=== PATIENT | male | born 1940 | race Caucasian/White ===

== ENCOUNTER 2020-08-25 00:10 | Inpatient (IN) | payer OTHER, MEDICAID ==
[~2020-08-25] VITALS: Ht 160 cm; Wt 64.9 kg
[2020-08-25 00:37] VITALS: BP 134/72
[2020-08-25 01:06] LABS: BASOPHILS % (AUTO) 0.3 % (0.0-2.0); EOSINOPHILS % (AUTO) 0.2 % (0.0-4.0); HEMOGLOBIN 11.3 g/dL (12.0-18.0); LYMPHOCYTES # (AUTO) 1.2 K/uL (2.0-11.5); LYMPHOCYTES % (AUTO) 15.3 % (20.5-51.1); MEAN CORPUSCULAR HEMOGLOBIN 33 pg (27-31); MEAN CORPUSCULAR HGB CONC 33 g/dL (33-37); MEAN CORPUSCULAR VOLUME 98.5 fL (80-94); MONOCYTES # (AUTO) 0.7 K/uL (0.8-1.0); MONOCYTES % (AUTO) 8.6 % (1.7-9.3); NEUTROPHILS # (AUTO) 5.9 K/uL (1.8-7.7); NEUTROPHILS % (AUTO) 75.6 % (42.2-75.2); PLATELET COUNT (AUTO) 142 K/uL (140-450); RED BLOOD CELL COUNT(AUTO) 3.45 MIL/uL (4.20-6.10); RED CELL DISTRIBUTION WIDTH 14.1 % (11.6-13.7); WHITE BLOOD COUNT (AUTO) 7.7 K/uL (4.8-10.8)
[2020-08-25 01:12] LABS: APPEARANCE,URINE CLEAR (CLEAR); BILIRUBIN,URINE 1+ (NEGATIVE); BLOOD, URINE NEGATIVE (NEGATIVE); COLOR,URINE YELLOW (YELLOW); LEUKOCYTE ESTERASE ,URINE NEGATIVE (NEGATIVE); NITRITE, URINE NEGATIVE (NEGATIVE); PH,URINE 5.5 (5.0-9.0); UGLUCOSE NEGATIVE (NEGATIVE)
[2020-08-25 01:25] LABS: ALBUMIN 4.5 g/dL (3.4-5.0); ANION GAP 17.9 (8-16); ASPARTATE AMINOTRANSFERASE 21 U/L (15-37); CARBON DIOXIDE 20.8 mmol/L (21-32); CHLORIDE 100 mmol/L (98-107); CREATININE 2.2 mg/dL (0.6-1.3); GLUCOSE 268 mg/dL (74-106); LIPASE 278 U/L (73-393); POTASSIUM 5.7 mmol/L (3.5-5.1); SODIUM SERUM 133 mmol/L (136-145); TOTAL BILIRUBIN 0.6 mg/dL (0.0-1.0); UREA NITROGEN, BLOOD 59 mg/dL (7-18)
--- NOTE | 2020-08-25 01:35 | NUR ---
PT BIB SELF FOR C/O 08/20 EPIGASTRIC PAIN X 4 DAYS. POSITIVE N/V. DENIES DIARRHEA, FEVER, CHILLS. REPORTS UNABLE TO EAT THE LAST 4 DAYS. TOLERATING LIQUIDS WELL. PAIN NOTED UPON PALPATION TO EPIGASTRIC AREA. DENIES CP OR SOB. MED HX: DM, LEFT EYE BLINDESS ALLERGIES: NKA
--- NOTE | 2020-08-25 01:39 | NUR ---
ERMD AT BEDSIDE.
[2020-08-25] MEDS ORDERED: MORPHINE SULFATE 4 MG/ML SYR IVP ONE (01:55)
--- NOTE | 2020-08-25 02:18 | NUR ---
PT TAKEN TO RAD VIA W/C
[2020-08-25] MEDS ORDERED: NACL 0.9% 1,000 ML IV SCH ×2 (03:55→10:00)
[2020-08-25] MEDS ORDERED: FUROSEMIDE 40 MG/4 ML VIAL IVP SCH (03:55)
[2020-08-25] MEDS ORDERED: PANTOPRAZOLE 40 MG INJ VIAL IVP SCH (03:55)
[2020-08-25] MEDS ORDERED: metroNIDAZOLE 500 MG/NS PREMIX 100 ML IV SCH (03:55)
[2020-08-25] MEDS ORDERED: cefTRIAXone 1,000 MG VIAL ONE (04:05)
[2020-08-25] MEDS ORDERED: DEXT 5% / NACL 0.9% 1,000 ML IV SCH (05:05)
[2020-08-25] MEDS ORDERED: BENA40TA PO (05:05)
[2020-08-25] MEDS ORDERED: SIMV10TA92 PO (05:05)
[2020-08-25] MEDS ORDERED: METF500T PO (05:05)
[2020-08-25] MEDS ORDERED: INSU100I7 SQ (05:05)
[2020-08-25] MEDS ORDERED: INSU100S54 SC (05:05)
--- NOTE | 2020-08-25 06:07 | NUR ---
PT AMBULATED TO RESTROOM WITH STEADY GAIT.
--- NOTE | 2020-08-25 07:15 | NUR ---
REPORT RECEIVED FROM BERONICA KIMBALL, TRANSFER OF CARE AT THIS TIME
--- NOTE | 2020-08-25 07:15 | NUR ---
REPORT GIVEN TO JIGAR CHRISTIAN FOR CONTINUITY OF CARE.
[2020-08-25] MEDS ORDERED: ZOLPIDEM 5 MG TAB PO PRN (08:20)
[2020-08-25] MEDS ORDERED: POTASSIUM CHLORIDE 10 MEQ TABER PO PRN (08:20)
[2020-08-25] MEDS ORDERED: DOCUSATE SODIUM 100 MG GELCAP PO PRN (08:20)
[2020-08-25] MEDS ORDERED: DEXTROSE 50% 50 ML SYR IVP PRN (08:20)
[2020-08-25] MEDS ORDERED: ACETAMINOPHEN 325 MG TAB PO PRN (08:20)
[2020-08-25] MEDS ORDERED: ONDANSETRON 4 MG/2 ML VIAL IM/IVP PRN (08:20)
[2020-08-25] MEDS ORDERED: MORPHINE SULFATE 2 MG/ML SYR IVP PRN (08:20)
[2020-08-25] MEDS ORDERED: guaiFENesin DM 200/20 MG-10 ML 10 ML UDC PO PRN (08:20)
[2020-08-25] MEDS: PANTOPRAZOLE 40 MG INJ VIAL IVP SCH (09:00)
--- NOTE | 2020-08-25 09:30 | NUR ---
PT ALERT AND AWAKE, BREATHING EVEN AND UNLABORED. NO DISTRESS NOTED. ALL NEEDS MET AT THIS TIME. WILL CONTINUE TO MONITOR.
[2020-08-25] MEDS ORDERED: INSULIN REGULAR, HUMAN 100 UNIT/ML VIAL IVP SCH (10:05)
[2020-08-25] MEDS ORDERED: DEXTROSE 50% 50 ML SYR IVP SCH (10:05)
[2020-08-25] MEDS: BLOOD GLUCOSE MONITORING 1 DEV DEV FS SCH ×3 (11:30→21:00)
--- NOTE | 2020-08-25 11:45 | NUR ---
RECEIVED REPORT FROM ER NURSE KARENA PT IS ON ROOM AIR, AMBULATORY WITH ASSIST, SKIN INTACT, CC EPIGASTRIC PAIN AND LOSS OF APPETITE X 3 DAYS, LEFT EYE BLINDNESS AND RIGHT EYE HARD OF SEEING, ON NPO, IV INTACT ON LEFT WRIST G22 WITH D5NS AT 105 MLS/HR.BLOOD SUGAR TAKEN AT 10:30 274 MG/DL.
--- NOTE | 2020-08-25 11:45 | NUR ---
Patient will be admitted to care of Dr Odom. Admited to Tele. Will go to room 124B. Belongings list completed. Report to Angelique KIMBALL.
[2020-08-25 12:05] VITALS: BP 137/70
--- NOTE | 2020-08-25 12:05 | NUR ---
PT BROUGHT TO THE UNIT VIA GURNEY, AMBULATED TO HIS BED, ASSISTED PATIENT AND CHANGED PT GOWN, SOCKS, FALL RISK BAND IN PLACE, CHECK VITAL SIGNS BP 137/70 MT 85 RR 20 TEMP 97.6 O2 99%,ORIENTED TO ROOM, SAFETY MEASURES IN PLACE AND CALL LIGHT WITHIN REACH. WILL CONTINUE TO MONITOR.
--- NOTE | 2020-08-25 12:08 | NUR ---
PT TAKEN TO FLOOR AT THIS TIME
[2020-08-25 12:12] LABS: APPEARANCE,URINE CLEAR (CLEAR); BILIRUBIN,URINE NEGATIVE (NEGATIVE); BLOOD, URINE NEGATIVE (NEGATIVE); COLOR,URINE YELLOW (YELLOW); LEUKOCYTE ESTERASE ,URINE NEGATIVE (NEGATIVE); NITRITE, URINE NEGATIVE (NEGATIVE); PH,URINE 5.5 (5.0-9.0); UGLUCOSE 2+ (NEGATIVE)
--- NOTE | 2020-08-25 12:25 | NUR ---
MRSA NARES SWAB COMPLETE AND SENT TO LAB.
--- NOTE | 2020-08-25 12:45 | NUR ---
BLOOD SUGAR 246 MF/DL INSULIN COVERAGE 4 UNITS GIVEN AND ADMINISTERED SCHEDULED MEDICATION METRONIDAZOLE 500 MG INFUSING WELL.PT IS RESTING ACCOMPANIED BY HIS SON.WILL CONTINUE TO MONITOR.
[2020-08-25 12:46] LABS: RBC,URINE 0-5 /HPF (0-5); WBC,URINE 0-5 /HPF (0-5)
[2020-08-25] MEDS: metroNIDAZOLE 500 MG/NS PREMIX 100 ML IV SCH ×2 (13:04→20:29)
[2020-08-25] MEDS: INSULIN LISPRO SLIDING SCALE 100 UNITS/ML VIAL SUBQ PRN ×2 (13:05→16:28)
[2020-08-25 13:42] LABS: PROTHROMBIN TIME 10.4 secs (10.8-13.4)
[2020-08-25 13:53] LABS: CHOL/HDL RATIO 3.3 (1-4.5); FREE T4 (FREE THYROXINE) 0.99 ng/dL (0.76-1.46); MAGNESIUM 1.6 mg/dL (1.8-2.4); PHOSPHORUS 2.8 mg/dL (2.5-4.9); THYROID STIMULATING HORMONE 2.29 uIU/mL (0.34-3.74)
[2020-08-25 16:00] VITALS: BP 111/59
--- NOTE | 2020-08-25 16:21 | NUR ---
DC PLANNING: CM SPOKE WITH PATIENT AT BEDSIDE. PATIENTS GRANDDAUGHTER LILLIANA ACTED FREIGHT CLAIM INVESTIGATOR PATIENT IS HEBREW SPEAKING. PATIENT LIVES WITH HIS SPOUSE HAIDER. THEY HAVE A RESIDENCE IN [place] AND ALSO SOMETIMES LIVE WITH THE PATIENTS SON SHAUN SARGENT IN [place] ([phone]). RESIDENCES ARE SINGLE STORY, ONE IS A HOUSE AND ONE IS AN APARTMENT. PATIENT IS INDEPENDENT IN ALL ACTIVITIES, NO PRIOR HOME HEALTH, DME OR SNF STAY. PATIENT HAS A PCP IN [place], LAST VISIT WAS IN JUL[place], PATIENT SEES HIM REGULARLY. DC PLAN IS FOR PATIENT TO STAY WITH ANOTHER SON IN [place], LILLIANA WILL CALL CM WITH THAT ADDRESS.
--- NOTE | 2020-08-25 16:29 | NUR ---
BLOOD SUGAR 176 MG/DL INSULIN COVERAGE GIVEN 2 UNITS PT TOLERATED WELL NO DISTRESS NOTED. WILL CONTINUE TO MONITOR,
[2020-08-25] MEDS: MAGNESIUM OXIDE 400 MG TAB PO SCH (18:27)
--- NOTE | 2020-08-25 18:28 | NUR ---
SCHEDULED MEDICATIONS WAS ADMINISTERED FOR MAGNESIUM LEVEL OF 1.7L. PT IS NOT UNDER DISTRESS. CALL LIGHT IS WITHIN REACH. WILL CONTINUE TO MONITOR. SAFETY PRECAUTIONS ARE IN PLACE.
[2020-08-25] MEDS: DEXT 5% / NACL 0.9% 1,000 ML IV SCH (18:50)
--- NOTE | 2020-08-25 18:56 | NUR ---
ADMINISTERED IV FLUIDS D5NS 0.9% AT 85 MLS/HR INFUSING WELL PT IS RESTING.
--- NOTE | 2020-08-25 19:30 | NUR ---
RECEIVED REPORT FROM JAYE RN DAYSHIFT NURSE AT [facility] FOR CONTINUITY OF CARE, PT IN STABLE CONDITION.
--- NOTE | 2020-08-25 19:35 | NUR ---
ENDORSED TO NIGHT NURSE FOR CONTINUITY OF CARE.
[2020-08-25 20:00] VITALS: BP 127/68
--- NOTE | 2020-08-25 20:00 | NUR ---
PT LYING IN BED AOX4 MOSTLY GREENLANDIC SPEAKING HE IS ON ROOM AIR, SKIN INTACT AND HE HAS A 22G L WRIST RUNNING D5N/S AT 85 MLS/HR. V/S FOLLOWS: T 98.7 P 84 R 20 B/P 127/68 02 97%. PT FINGERSTICK IS 148, NO HUMALOG COVERAGE NEEDED. ALL FALLS PRECAUTIONS IN PLACE.
--- NOTE | 2020-08-25 21:00 | NUR ---
FLAGYL HUNG AND RUNNING AT 100MLS/HR ORDERED. PT EDUCATED REGARDING MEDICATION AND ITS PURPOSES. PT VERBALIZED UNDERSTANDING.
--- NOTE | 2020-08-25 22:00 | NUR ---
ROEL HUNG AND RUNNING ORDERED. PT ASLEEP. PT AWOKEN AND EXPLAINED MEDICATION PURPOSES . PT VERBALIZED UNDERSTANDING. ALL FALLS PRECAUTIONS IN PLACE.
--- NOTE | 2020-08-25 22:30 | NUR ---
SPOKE WITH MD BLAIR EGG TRAYER REGARDING INCREASED POTASSIUM TO 5.7 NEW ORDER TO INCREASE RATE TO 100MLS/HR
[2020-08-26] VITALS: BP 129/72
[2020-08-26] MEDS: HYDROcodone/APAP 7.5/325 MG 1 TAB PO PRN ×3 (00:30→18:38)
--- NOTE | 2020-08-26 00:30 | NUR ---
PT C/ OF LOWER BACK PAIN , HE WAS GIVEN ORDERED PO/PRN NORCO WILL MONITOR FOR PAIN RELIEF. V/S FOLLOWS: T 98.4 P 108 R 20 B/P 129/72 02 98% ON ROOM AIR. ALL FALLS PRECAUTIONS IN PLACE.
[2020-08-26 04:00] VITALS: BP 127/68
[2020-08-26] MEDS: metroNIDAZOLE 500 MG/NS PREMIX 100 ML IV SCH ×3 (05:09→20:51)
[2020-08-26 05:30] LABS: BASOPHILS % (AUTO) 0.6 % (0.0-2.0); EOSINOPHILS # (AUTO) 0.2 K/uL (0-0.4); EOSINOPHILS % (AUTO) 4.1 % (0.0-4.0); HEMATOCRIT 25.6 % (36-52); HEMOGLOBIN 8.6 g/dL (12.0-18.0); LYMPHOCYTES # (AUTO) 0.7 K/uL (2.0-11.5); LYMPHOCYTES % (AUTO) 15.5 % (20.5-51.1); MEAN CORPUSCULAR HEMOGLOBIN 33 pg (27-31); MEAN CORPUSCULAR HGB CONC 34 g/dL (33-37); MEAN CORPUSCULAR VOLUME 97.6 fL (80-94); MONOCYTES # (AUTO) 0.5 K/uL (0.8-1.0); MONOCYTES % (AUTO) 10.9 % (1.7-9.3); NEUTROPHILS # (AUTO) 3.1 K/uL (1.8-7.7); NEUTROPHILS % (AUTO) 68.9 % (42.2-75.2); PLATELET COUNT (AUTO) 123 K/uL (140-450); RED BLOOD CELL COUNT(AUTO) 2.62 MIL/uL (4.20-6.10); RED CELL DISTRIBUTION WIDTH 14.2 % (11.6-13.7); WHITE BLOOD COUNT (AUTO) 4.5 K/uL (4.8-10.8)
[2020-08-26 06:08] LABS: CHLORIDE 108 mmol/L (98-107); CREATININE 1.5 mg/dL (0.6-1.3); GLUCOSE 269 mg/dL (74-106); POTASSIUM 5.2 mmol/L (3.5-5.1); SODIUM SERUM 137 mmol/L (136-145); UREA NITROGEN, BLOOD 35 mg/dL (7-18)
[2020-08-26 06:21] LABS: ANION GAP 11.3 (8-16); CARBON DIOXIDE 22.9 mmol/L (21-32)
[2020-08-26] MEDS: INSULIN LISPRO SLIDING SCALE 100 UNITS/ML VIAL SUBQ PRN ×4 (06:41→20:47)
[2020-08-26] MEDS: DEXT 5% / NACL 0.9% 1,000 ML IV SCH (06:50)
--- NOTE | 2020-08-26 07:30 | NUR ---
RECEIVED BEDSIDE REPORT FROM GTA NURSE FOR CONTINUITY OF CARE. PT IS AOX4, ENGLISH SPEAKING, ABLE TO MAKE NEEDS KNOWN. RESPIRATIONS EVEN AND UNLABORED. ON ROOM AIR AND NO RESPIRATORY DISTRESS NOTED. SKIN IS WARM AND DRY. NO IV SITE DUE TO INFILTRATION, WILL REINSERT NEW IV. DENIES PAIN AT THE MOMENT. PLAN OF CARE DISCUSSED. SAFETY PRECAUTIONS IN PLACE. BED IN LOW POSITION AND CALL LIGHT WITHIN REACH. WILL CONTINUE TO MONITOR.
[2020-08-26] MEDS: BLOOD GLUCOSE MONITORING 1 DEV DEV FS SCH ×4 (07:45→20:50)
[2020-08-26 08:00] VITALS: BP 111/62
--- NOTE | 2020-08-26 08:05 | NUR ---
PATIENT HAS BEEN SCREENED AND CATEGORIZED MODERATE NUTRITION RISK. PATIENT WILL BE SEEN WITHIN 3-5 DAYS OF ADMISSION. 08/27/20 08/29/20 RECEIVED FNS REFERRAL NOT APPROPRIATE FOR VOMITING OVER 3 DAYS AND UNINTENTIONAL WEIGHT LOSS, PER MD H&P NOTE AND MD CONSULT PT DENIED VOMITING AND WEIGHT LOSS. BERONICA GAYLE RD
[2020-08-26 08:42] LABS: CREATININE,URINE RANDOM 18 mg/dL (30-125); URINE SODIUM, RANDOM 106 mmol/l (40-220)
[2020-08-26] MEDS: DEXT 5% /NACL 0.9% 1,000 ML IV SCH ×2 (08:51→18:09)
--- NOTE | 2020-08-26 09:15 | NUR ---
INSERTED NEW IV ON RFA 24 G. INTACT AND PATENT.
[2020-08-26] MEDS: PANTOPRAZOLE 40 MG INJ VIAL IVP SCH (09:27)
[2020-08-26] MEDS: MAGNESIUM OXIDE 400 MG TAB PO SCH (09:27)
--- NOTE | 2020-08-26 09:30 | NUR ---
ALL SCHEDULED MEDS GIVEN. PT IS STABLE. NO DISTRESS NOTED. WILL CONTINUE TO MONITOR.
--- NOTE | 2020-08-26 11:29 | NUR ---
BLOOD GLUCOSE CHECK IS 160. INSULIN COVERAGE NEEDED. ADMINISTERED 2 UNITS OF INSULIN SQ PER MD ORDERED.
--- NOTE | 2020-08-26 11:59 | NUR ---
PATIENT'S FAMILY AT BEDSIDE. INFORMED NEW UPDATES OF PLAN OF CARE WITH PATIENT'S FAMILY.
[2020-08-26 12:00] VITALS: BP 136/76
[2020-08-26] MEDS ORDERED: FUROSEMIDE 20 MG/2 ML VIAL IVP SCH (12:30)
--- NOTE | 2020-08-26 12:42 | NUR ---
PATIENT COMPLAINED OF LOWER BACK PAIN 5/10. ADMINISTERED PRN PAIN MEDICATION PER MD ORDERED.
[2020-08-26 13:04] LABS: T4 (THYROXINE) 7.6 ug/dL (4.5 - 12.0)
--- NOTE | 2020-08-26 15:00 | NUR ---
PATIENT IS ASLEEP. NOTED CHEST RISE AND FALL. NO DISTRESS NOTED. WILL CONTINUE TO MONITOR.
[2020-08-26 16:00] VITALS: BP 124/72
--- NOTE | 2020-08-26 17:50 | NUR ---
BLOOD GLUCOSE CHECK AT 257. INSULIN COVERAGE NEEDED. ADMINISTERED 6 UNITS OF INSULIN SQ PER MD ORDERED.
--- NOTE | 2020-08-26 18:38 | NUR ---
PATIENT COMPLAINED OF LOWER BACK PAIN 5/10. ADMINISTERED PRN PAIN MEDICATION PER MD ORDERED.
--- NOTE | 2020-08-26 19:30 | NUR ---
RECEIVED REPORT FROM RN DAYSHIFT NURSE AT BEDSIDE FOR CONTINUITY OF CARE, PT IN STABLE CONDITION. PT IN BED AOX4 MOSTLY CROATIAN SPEAKING. HE HAS A 24 GUAGE ON RIGHT F/A INTACT AND RUNNING D5 N/S AT 100MLS/HR. PT HAS NO C/O VOICED AT THIST MARTINEZ AND ALL FALLS PRECAUTIONS IN PLACE.
--- NOTE | 2020-08-26 19:30 | NUR ---
ENDORSED TO FOOT AND ANKLE SURGEON NURSE FOR CONTINUITY OF CARE. PT IS STABLE.
[2020-08-26 20:00] VITALS: BP 99/59
--- NOTE | 2020-08-26 20:00 | NUR ---
PT V/S FOLLOWS: T 98.7 P 84 R 20 B/P 127/68 02 97% ON ROOM AIR. PT DENIES ANY PAIN . FLUIDS OF D5 N/S RUNNING ORDERED AT 100MLS/HR PT DENIES ANY PAIN AT THIS TIME. ALL FALLS PRECAUTIONS IN PLACE.
--- NOTE | 2020-08-26 21:00 | NUR ---
PT FINGERSTICK IS 177, HE WAS GIVEN 2 UNITS OF HUMALOG PER S/S MEG BOLTON AND RUNNING AT 100MLS/HR ORDERED. ALL REQUESTED NEEDS ATTENDED BY STAFF. PT HUMERA ANY PAIN OR DISCOMFORT AT THIS TIME.
--- NOTE | 2020-08-26 22:00 | NUR ---
ADELAIDAHISevero HUNG AND RUNNING ORDERED PT ABLE TO VERBALIZED UNDERSTANDING OF IV ABT'S. NEW BAG OF D5 FLUIDS HUNG AND RUNNING AT 10MLS/HR ORDERED. ALL FALLS PRECAUTIONS IN PLACE.
[2020-08-27] VITALS: BP 112/58
--- NOTE | 2020-08-27 00:10 | NUR ---
PT IN BED RESTING BUT AROUSABLE TO NAME AND LIGHT TOUCH. PT DENIES ANY PAIN AT THIS TIME. V/S FOLLOWS: T 97.7 P 76 R 20 B/P 99/59 02 96% ON ROOM AIR. ALL FALLS PRECAUTIONS IN PLACE.
--- NOTE | 2020-08-27 01:30 | NUR ---
PT'S GRANDDAUGHTER AT BEDSIDE. PT SPEAKING APPROPRIATELY. NO SIGN OF PAIN OR DISTRESS. ON RA. IV IS PATENT AND INTACT. PT IS STABLE. WILL CONTINUE TO MONITOR. Addendum: 08/27/20 at 1520 by Rachel White RN MEANT FOR 1330 PM NOT 0130 AM.
[2020-08-27 04:00] VITALS: BP 121/61
[2020-08-27] MEDS: DEXT 5% /NACL 0.9% 1,000 ML IV SCH (04:00)
[2020-08-27] MEDS: metroNIDAZOLE 500 MG/NS PREMIX 100 ML IV SCH ×3 (05:12→20:15)
[2020-08-27 05:21] LABS: ANION GAP 14.9 (8-16); CARBON DIOXIDE 24.2 mmol/L (21-32); CHLORIDE 106 mmol/L (98-107); CREATININE 1.4 mg/dL (0.6-1.3); GLUCOSE 219 mg/dL (74-106); POTASSIUM 5.1 mmol/L (3.5-5.1); SODIUM SERUM 140 mmol/L (136-145); UREA NITROGEN, BLOOD 22 mg/dL (7-18)
[2020-08-27 05:40] LABS: BASOPHILS % (AUTO) 0.5 % (0.0-2.0); EOSINOPHILS # (AUTO) 0.2 K/uL (0-0.4); EOSINOPHILS % (AUTO) 3.4 % (0.0-4.0); HEMATOCRIT 27.6 % (36-52); HEMOGLOBIN 9.3 g/dL (12.0-18.0); LYMPHOCYTES # (AUTO) 0.8 K/uL (2.0-11.5); LYMPHOCYTES % (AUTO) 15.7 % (20.5-51.1); MEAN CORPUSCULAR HEMOGLOBIN 33 pg (27-31); MEAN CORPUSCULAR HGB CONC 34 g/dL (33-37); MEAN CORPUSCULAR VOLUME 97.4 fL (80-94); MONOCYTES # (AUTO) 0.6 K/uL (0.8-1.0); MONOCYTES % (AUTO) 10.8 % (1.7-9.3); NEUTROPHILS # (AUTO) 3.7 K/uL (1.8-7.7); NEUTROPHILS % (AUTO) 69.6 % (42.2-75.2); PLATELET COUNT (AUTO) 139 K/uL (140-450); RED BLOOD CELL COUNT(AUTO) 2.84 MIL/uL (4.20-6.10); RED CELL DISTRIBUTION WIDTH 14.2 % (11.6-13.7); WHITE BLOOD COUNT (AUTO) 5.3 K/uL (4.8-10.8)
[2020-08-27] MEDS: INSULIN LISPRO SLIDING SCALE 100 UNITS/ML VIAL SUBQ PRN ×4 (06:36→20:17)
[2020-08-27] MEDS: BLOOD GLUCOSE MONITORING 1 DEV DEV FS SCH ×4 (07:13→20:15)
--- NOTE | 2020-08-27 07:30 | NUR ---
RECEIVED BEDSIDE REPORT FROM ORE MIXER NURSE FOR CONTINUITY OF CARE. PT IS AWAKE AND ALERT. A&OX4. ON RA WITH BREATHING UNLABORED. PT IS AMBULATORY INDEPENDENTLY. SKIN IS WARM, DRY, AND INTACT. IV IS IN THE RIGHT FOREARM 24 GAUGE INFUSING FLUIDS ORDERED. PT IS STABLE. PLAN OF CARE DISCUSSED.
[2020-08-27 08:00] VITALS: BP 118/62
--- NOTE | 2020-08-27 09:30 | NUR ---
PT IS LAYING SUPINE. NO RESPIRATORY DISTRESS NOTED ON RA. IV FLUIDS ARE INFUSING ORDERED. PT IS STABLE.
[2020-08-27] MEDS: MAGNESIUM OXIDE 400 MG TAB PO SCH (09:34)
[2020-08-27] MEDS: PANTOPRAZOLE 40 MG INJ VIAL IVP SCH ×2 (09:34→20:16)
--- NOTE | 2020-08-27 11:30 | NUR ---
PT IS AWAKE AND ALERT. DENIES ABD PAIN. DENIES N/V. PT HAS NOT HAD A BM TODAY. NO DISTRESS AT THIS TIME. PT IS STABLE.
[2020-08-27 12:00] VITALS: BP 133/70
[2020-08-27] MEDS ORDERED: PANTOPRAZOLE 40 MG INJ VIAL IVP SCH (12:40)
--- NOTE | 2020-08-27 12:44 | NUR ---
SPOKE WITH DR. SELLERS, HE GAVE VERBAL ORDER FOR FULL LIQUID DIET. HE ALSO ASKED WHEN THE LAST TIME THE PT HAD A BM. ASKED THE PT AND HE SAID 4 DAYS AGO. WILL NEED TO COLLECT STOOL FOR OCCULT BLOOD SAMPLE.
[2020-08-27] MEDS: DEXT 5% / NACL 0.45% 1,000 ML IV SCH (12:45)
[2020-08-27] MEDS: SUCRALFATE 1 GM TAB PO SCH ×3 (13:44→20:16)
--- NOTE | 2020-08-27 14:00 | NUR ---
PT RECEIVED FOOD TRAY. DIET WAS ADVANCED TO FULL LIQUID. PT TOLERATED FULL LIQUID WELL. NO COMPLAINT OF N/V. PT IS STABLE.
[2020-08-27 16:00] VITALS: BP 131/74
--- NOTE | 2020-08-27 16:00 | NUR ---
PT IS SITTING AT BEDSIDE, TALKING TO GRANDDAUGHTER. NO DISTRESS NOTED. PT'S BREATHING IS UNLABORED ON RA. PT WAS GIVEN WATER REQUESTED. NEEDS HAVE BEEN MET.
[2020-08-27] MEDS: HYDROcodone/APAP 7.5/325 MG 1 TAB PO PRN (18:31)
--- NOTE | 2020-08-27 18:31 | NUR ---
PT IS STATING HE HAS PAIN IN HIS LOWER ABDOMEN. PT WAS GIVEN NORCO FOR PAIN AT A SCALE OF 6/10. WILL CONTINUE TO MONITOR PAIN.
--- NOTE | 2020-08-27 19:35 | NUR ---
ENDORSED PT TO SUPERVISOR CONCRETE STONE FINISHING NURSE FOR CONTINUITY OF CARE. PT IS STABLE AT THIS TIME. PLAN OF CARE DISCUSSED.
--- NOTE | 2020-08-27 19:40 | NUR ---
RECIEVED BEDSIDE ENDORSMENT FROM DAY SHIFT RN, PT A&OX3, ABLE TO MAKE NEEDS KNOWN AND FOLLOWS SIMPLE COMMANDS, MAINLY AUSTRIAN SPEAKING BUT ALBE TO COMMUNICATE WITH IRISH, SR ON MONITOR, ON ROOM AIR, VSS, AFEBRILE, SKIN WARM DRY AND INTACT, PT ABLE TO USE BEDSIDE URINAL WITH ASSISTANCE, RFA 24 G PIV INFUSING D5 HALF NS @ 80MLS/HR, PT SHOWING NO SIGNS OF ACUTE DISTRESS, SAFETY MEASURES IN PLACE, WILL CONTINUE WITH CURRENT POC
[2020-08-27 20:00] VITALS: BP 133/66
--- NOTE | 2020-08-27 20:18 | NUR ---
ADMINISTERED 2100H MEDICAITONS PER MD ORDERS, BLOOD GLUCOSE 213, ADMINISTERED 4 UNITS HUMALOG PER PROTOCOL
--- NOTE | 2020-08-27 22:03 | NUR ---
ASSISTED PT WITH TURNING, ADMINISTERED ROCEPHIN VIA IVPB, NO SIGNS OF ACUTE DISTRESS
[2020-08-28] VITALS: BP 120/53
--- NOTE | 2020-08-28 00:08 | NUR ---
PT SEEMS TO BE ASLEEP AND SHOWING NO SIGNS OF ACUTE DISTRESS
[2020-08-28] MEDS: DEXT 5% / NACL 0.45% 1,000 ML IV SCH ×2 (01:15→04:58)
--- NOTE | 2020-08-28 02:39 | NUR ---
PT ASLEEP AND SHOWING NO SIGNS OF ACUTE DISTRESS
[2020-08-28 04:00] VITALS: BP 131/68
[2020-08-28] MEDS: metroNIDAZOLE 500 MG/NS PREMIX 100 ML IV SCH ×3 (04:13→21:23)
--- NOTE | 2020-08-28 04:39 | NUR ---
ADMINISTERED 0500H MEDICATION PER MD ORDERS
[2020-08-28 05:09] LABS: BASOPHILS % (AUTO) 0.7 % (0.0-2.0); EOSINOPHILS # (AUTO) 0.2 K/uL (0-0.4); EOSINOPHILS % (AUTO) 5.2 % (0.0-4.0); HEMATOCRIT 25.2 % (36-52); HEMOGLOBIN 8.5 g/dL (12.0-18.0); LYMPHOCYTES # (AUTO) 1.1 K/uL (2.0-11.5); MEAN CORPUSCULAR HEMOGLOBIN 33 pg (27-31); MEAN CORPUSCULAR HGB CONC 34 g/dL (33-37); MEAN CORPUSCULAR VOLUME 98.8 fL (80-94); MONOCYTES # (AUTO) 0.7 K/uL (0.8-1.0); MONOCYTES % (AUTO) 14.3 % (1.7-9.3); NEUTROPHILS # (AUTO) 2.6 K/uL (1.8-7.7); NEUTROPHILS % (AUTO) 55.8 % (42.2-75.2); PLATELET COUNT (AUTO) 147 K/uL (140-450); RED BLOOD CELL COUNT(AUTO) 2.56 MIL/uL (4.20-6.10); RED CELL DISTRIBUTION WIDTH 14.3 % (11.6-13.7); WHITE BLOOD COUNT (AUTO) 4.7 K/uL (4.8-10.8)
[2020-08-28 05:12] LABS: ANION GAP 10.2 (8-16); CARBON DIOXIDE 25.2 mmol/L (21-32); CHLORIDE 105 mmol/L (98-107); CREATININE 1.3 mg/dL (0.6-1.3); GLUCOSE 189 mg/dL (74-106); POTASSIUM 4.4 mmol/L (3.5-5.1); SODIUM SERUM 136 mmol/L (136-145); UREA NITROGEN, BLOOD 14 mg/dL (7-18)
[2020-08-28 05:20] LABS: MAGNESIUM 1.5 mg/dL (1.8-2.4); PHOSPHORUS 2.8 mg/dL (2.5-4.9)
[2020-08-28] MEDS: HYDROcodone/APAP 7.5/325 MG 1 TAB PO PRN (06:11)
[2020-08-28] MEDS: BLOOD GLUCOSE MONITORING 1 DEV DEV FS SCH ×4 (06:22→21:26)
[2020-08-28] MEDS: INSULIN LISPRO SLIDING SCALE 100 UNITS/ML VIAL SUBQ PRN ×4 (06:23→21:29)
--- NOTE | 2020-08-28 06:23 | NUR ---
BLOOD GLUCOSE 182, ADMINISTERED 2 UNITS HUMALOG PER PROTOCOL
--- NOTE | 2020-08-28 07:19 | NUR ---
ENDORSED TO DAY SHIFT RN FOR CONTINUITY OF CARE
--- NOTE | 2020-08-28 07:24 | NUR ---
RECEIVED BEDSIDE REPORT FROM NIGHTSHIFT NURSE. PT RESTING IN BED. ABLE TO MAKE NEEDS KNOWN. RESPIRATIONS EVEN AND UNLABORED WITH NO SOB OR RESPIRATORY DISTRESS. SKIN WARM AND DRY TO TOUCH. SAFETY MEASURES IN PLACE. WILL CONTINUE TO MONITOR
[2020-08-28 08:00] VITALS: BP 121/78
[2020-08-28] MEDS ORDERED: LACTULOSE 20 GM/30 ML UDC PO SCH (09:00)
[2020-08-28] MEDS: PANTOPRAZOLE 40 MG INJ VIAL IVP SCH ×2 (09:05→21:22)
[2020-08-28] MEDS: MAGNESIUM OXIDE 400 MG TAB PO SCH (09:05)
[2020-08-28] MEDS: SUCRALFATE 1 GM TAB PO SCH ×4 (09:05→21:00)
--- NOTE | 2020-08-28 09:11 | NUR ---
MEDICATIONS GIVEN PER MD ORDER. MEDICATION EDUCATION PROVIDED. PT ABLE TO MAKE NEEDS KNOWN. ALL SAFETY MEASURES IN PLACE. CALL LIGHT WITHIN REACH.
[2020-08-28] MEDS: LACTULOSE 20 GM/30 ML UDC PO SCH ×3 (10:15→17:05)
--- NOTE | 2020-08-28 10:30 | NUR ---
PT NEEDS CT OF ABD/PELVIS, PT NEEDS HIGHER GAUGE IV CATHETER, ATTEMPTED X2 FOR IV. PT STATED "I DO NOT WANT TO BE POKED ANYMORE." US, CHARGE, AND MD AWARE. SAFETY MEASURES IN PLACE. WILL CONTINUE TO MONITOR
[2020-08-28] MEDS: MAG SULF 2000 MG/WATER PREMIX 100 ML IV SCH ×2 (11:24→14:35)
--- NOTE | 2020-08-28 11:30 | NUR ---
PT BLOOD SUGAR IS 246. PRN INSULIN TO BE ADMINISTERED PRESCRIBED PER MD ORDER. PT TOLERATED WELL. SAFETY MEASURES IN PLACE. WILL CONTINUE TO MONITOR
[2020-08-28 12:00] VITALS: BP 155/68
--- NOTE | 2020-08-28 12:15 | NUR ---
PT VISITING AT BEDSIDE. NO DISTRESS WITH PATIENT. SAFETY MEASURES IN PLACE. WILL CONTINUE TO MONITOR
--- NOTE | 2020-08-28 13:00 | NUR ---
ADMINISTERED SCHED MED PRESCRIBED PER MD ORDER. PT TOLERATED WELL. MEDICATION EDUCATION PERFORMED. PT VERBALIZED UNDERSTANDING. SAFETY MEASURES IN PLACE. WILL CONTINUE TO MONITOR
[2020-08-28] MEDS: SENNA 8.6 MG TAB PO SCH ×2 (13:33→17:07)
--- NOTE | 2020-08-28 14:00 | NUR ---
PATIENT TO HAVE EGD/COLONOSCOPY TOMORROW, DR. DEWITT EXPLAINING PROCEDURE TO PATIENT WITH [facility] [id number]. SAFETY MEASURES IN PLACE. WILL CONTINUE TO MONITOR
--- NOTE | 2020-08-28 15:15 | NUR ---
PT RESTING IN BED. ABLE TO MAKE NEEDS KNOWN. RESPIRATIONS EVEN AND UNLABORED WITH NO SOB OR RESPIRATORY DISTRESS. SKIN WARM AND DRY TO TOUCH. SAFETY MEASURES IN PLACE. WILL CONTINUE TO MONITOR
[2020-08-28 16:00] VITALS: BP 155/72
--- NOTE | 2020-08-28 16:30 | NUR ---
BG IS 189. INSULIN COVERAGE NEEDED PER SLIDING SCALE PER MD ORDERS. PT EDUCATED. PT TOLERATED. ALL SAFETY MEASURES IN PLACE
--- NOTE | 2020-08-28 17:03 | NUR ---
PT AMBULATED TO BATHROOM. NO S/S OF DISTRESS. PT DENIES SOB.
--- NOTE | 2020-08-28 18:06 | NUR ---
PT NEEDS NEW IV FOR CT WITH CONTRAST. NEWLY INSERTED LAC 20G IS CLEAN, DRY, AND INTACT. CT AWARE. SAFETY MEASURES IN PLACE. WILL CONTINUE TO MONITOR
--- NOTE | 2020-08-28 18:20 | NUR ---
PT AWARE HE NEEDS TO DRINK CONTRAST FOR CT TONIGHT. FAMILY AT BEDSIDE VISITING PATIENT AND ENCOURAGING HIM TO DRINK. SAFETY MEASURES IN PLACE. WILL CONTINUE TO MONITOR
--- NOTE | 2020-08-28 19:22 | NUR ---
PT ENDORSED TO API DEVELOPER RN FOR CONTINUITY OF CARE.
--- NOTE | 2020-08-28 19:25 | NUR ---
RECIEVED BEDSIDE ENDORSMENT FROM DAY SHIFT RN, PT A&OX3, ABLE TO MAKE NEEDS KNOWN AND FOLLOWS SIMPLE COMMANDS, MAINLY BOLIVIAN SPEAKING BUT ALBE TO COMMUNICATE WITH CITIZEN OF [place], ST ON MONITOR, ON ROOM AIR, VSS, AFEBRILE, SKIN WARM DRY AND INTACT, PT ABLE TO USE BEDSIDE URINAL AND RESTROOM W/ STANDBY ASSISTANCE, LAC 20 G PIV INFUSING D5 HALF NS @ 80MLS/HR, PT SHOWING NO SIGNS OF ACUTE DISTRESS, SAFETY MEASURES IN PLACE, WILL CONTINUE WITH CURRENT POC
[2020-08-28 20:00] VITALS: BP 131/74
--- NOTE | 2020-08-28 20:10 | NUR ---
PT RETURNED FROM CT VIA WC
--- NOTE | 2020-08-28 21:35 | NUR ---
ADMINISTERED 2100H MEDICATIONS PER MD ORDERS, BLOOD GLUCOSE 240, ADMINISTERED 4 UNITS PER PROTOCOL
--- NOTE | 2020-08-28 23:16 | NUR ---
PT RESTING AND WATCHING TV
[2020-08-29] VITALS: BP 145/79
--- NOTE | 2020-08-29 01:46 | NUR ---
PT ASLEEP AND SHOWING NO SIGNS OF ACUTE DISTRESS
[2020-08-29 04:00] VITALS: BP 124/62
[2020-08-29] MEDS: metroNIDAZOLE 500 MG/NS PREMIX 100 ML IV SCH (04:12)
--- NOTE | 2020-08-29 04:14 | NUR ---
ADMINISTERED 0500H MEDICATION PER MD ORDERS
[2020-08-29 05:43] LABS: BASOPHILS % (AUTO) 0.6 % (0.0-2.0); EOSINOPHILS % (AUTO) 0.5 % (0.0-4.0); HEMATOCRIT 26.3 % (36-52); LYMPHOCYTES # (AUTO) 0.9 K/uL (2.0-11.5); LYMPHOCYTES % (AUTO) 15.2 % (20.5-51.1); MEAN CORPUSCULAR HEMOGLOBIN 33 pg (27-31); MEAN CORPUSCULAR HGB CONC 34 g/dL (33-37); MEAN CORPUSCULAR VOLUME 97.9 fL (80-94); MONOCYTES # (AUTO) 0.6 K/uL (0.8-1.0); MONOCYTES % (AUTO) 10.2 % (1.7-9.3); NEUTROPHILS # (AUTO) 4.1 K/uL (1.8-7.7); NEUTROPHILS % (AUTO) 73.5 % (42.2-75.2); PLATELET COUNT (AUTO) 153 K/uL (140-450); RED BLOOD CELL COUNT(AUTO) 2.69 MIL/uL (4.20-6.10); RED CELL DISTRIBUTION WIDTH 14.2 % (11.6-13.7); WHITE BLOOD COUNT (AUTO) 5.6 K/uL (4.8-10.8)
[2020-08-29 05:55] LABS: CARBON DIOXIDE 25.4 mmol/L (21-32); CHLORIDE 103 mmol/L (98-107); CREATININE 1.2 mg/dL (0.6-1.3); GLUCOSE 199 mg/dL (74-106); POTASSIUM 4.4 mmol/L (3.5-5.1); SODIUM SERUM 134 mmol/L (136-145); UREA NITROGEN, BLOOD 8 mg/dL (7-18)
[2020-08-29 06:09] LABS: MAGNESIUM 1.9 mg/dL (1.8-2.4); PHOSPHORUS 2.7 mg/dL (2.5-4.9)
[2020-08-29] MEDS: BLOOD GLUCOSE MONITORING 1 DEV DEV FS SCH ×2 (06:28→11:18)
[2020-08-29] MEDS: INSULIN LISPRO SLIDING SCALE 100 UNITS/ML VIAL SUBQ PRN ×2 (06:29→11:25)
--- NOTE | 2020-08-29 07:20 | NUR ---
ENDORSED TO DAY SHIFT RN FOR CONTINUITY OF CARE
--- NOTE | 2020-08-29 07:22 | NUR ---
RECEIVED REPORT FROM NIGHT NURSE. ACCORDING TO NIGHT NURSE PT HAS A SCHEDULED COLONOSCOPY AND EGD TODAY 08/29/2020. PT IS BREATHING ON RA. SKIN IS INTACT AND HAS AN IV ON LAC 20G RUNNING AT D5 1/2 NS AT 40ML/HR.LAST BG WAS 162 AND 2 UNITS OF INSULIN WERE GIVEN. PT IS BLIND ON LEFT EYE AND IS A&OX4. PT IS SLEEPING . PT DOES NOT APPEAR TO BE UNDER DISTRESS.SAFETY PRECAUTIONS ARE IN PLACE. WILL CONTINUE TO MONITOR.
[2020-08-29 08:00] VITALS: BP 112/71
[2020-08-29] MEDS: LACTULOSE 20 GM/30 ML UDC PO SCH (09:00)
[2020-08-29] MEDS: MAGNESIUM OXIDE 400 MG TAB PO SCH (09:00)
[2020-08-29] MEDS: SENNA 8.6 MG TAB PO SCH (09:00)
[2020-08-29] MEDS: PANTOPRAZOLE 40 MG INJ VIAL IVP SCH (09:23)
[2020-08-29] MEDS ORDERED: PANT40EC56 PO (09:24)
--- NOTE | 2020-08-29 09:29 | NUR ---
ADMINISTERED MEDICATIONS PER MD ORDER EXCEPT NPO MEDS DUE TO PT BEING NPO FOR PROCEDURE.EXPLAINED MEDICATIONS SMOA, SIDE EFFECTS AND USAGE. PT VERBALIZED UNDERSTANDING OF TEACHING. PT IS NOT IN DISTRESS. WILL CONTINUE TO MONITOR. CALL LIGHT IS WITHIN REACH.SAFETY PRECAUTIONS ARE IN PLACE.
[2020-08-29] MEDS: SUCRALFATE 1 GM TAB PO SCH (09:35)
--- NOTE | 2020-08-29 10:09 | NUR ---
MESSAGED DR. SELLERS TO ASK AT WHAT TIME EGD& COLONOSCOPY FOR PT TO PREPARE FOR DC. AWAITING ANSWER.
--- NOTE | 2020-08-29 10:43 | NUR ---
PT'S SON CALLED TO ASK IF PT COULD EAT SOLID FOOD. I TOLD HIM THAT PT IS NPO UNTIL AFTER PROCEDURE. PT SON SAID HE WILL BE VISITING IN 30 MINUTES.
--- NOTE | 2020-08-29 11:10 | NUR ---
INSERT A 24 GAUGE IV ON RIGHT HAND DUE TO IV ON LEFT UPPER ARM BEING NON-INTACT. PT TOOK PROCEDURE WELL. RIGHT HAND IV WAS PATENT UPON SALINE FLUSH AND PT COMPLAINED OF NO PAIN. CALL LIGHT IS WITHIN REACH. PT IS NOT UNDER DISTRESS. SON IS AT BEDSIDE. WILL CONTINUE TO MONITOR.
--- NOTE | 2020-08-29 11:27 | NUR ---
PT WAS ADMINISTERED 2UNITS OF HUMALOG FOR A BG OF 177MG/DL. PT IS NOT UNDER DISTRESS. SON IS AT BEDISIDED. CALL LIGHT IS WITHIN REACH. EXPLAINED INSULIN MOA, SIDE EFFECTS AND ITS USAGE. PT VERBALIZED UNDERSTANDING. SAFETY PRECAUTIONS ARE IN PLACE. WILL CONTINUE TO MONITOR.
[2020-08-29 12:00] VITALS: BP 159/71
--- NOTE | 2020-08-29 12:12 | NUR ---
LAUREN, PROCESS MACHINE OPERATOR SAID TOLD HIM PT WAS ONLY GOING TO HAVE A COLONOSCOPY AND NOT AN EGD. WILL NOTIFY PT AND SON .
--- NOTE | 2020-08-29 12:20 | NUR ---
PT LEFT ROOM TO OR. PREOP LIST WAS DONE.
[2020-08-29] MEDS ORDERED: fentaNYL citrate 0.05 MG/ML VIAL ONE (12:42)
[2020-08-29] MEDS ORDERED: MIDAZOLAM 5 MG/5 ML VIAL ONE (12:42)
[2020-08-29] MEDS ORDERED: diphenhydrAMINE 50 MG/ML VIAL ONE (12:42)
--- NOTE | 2020-08-29 13:37 | NUR ---
PT ARRIVED BACK FROM OR. PT RECEIVED 2MG FO VERSED, 50 OF FENTANYL. NO PROCEDURE WAS DONE SINCE THERE WAS STILL FECES ON PT'S COLON. MD INSTRUCTOR FOR PT AN OUTPATIENT TO DO COLONOSCOPY. PT IS AWAKE AND ALERT AND EATING. PT COMPLAINS OF NO PAIN. WILL ATTEMPT TO CONTACT NEXT OF KIN TO UPDATE ABOUT PT'S STATUS AND TO COME SKILLED NURSING CASE MANAGER. SAFETY PRECAUTIONS ARE IN PLACE. CALL LIGHT IS WITHIN REACH. WILL CONTINUE TO MONITOR.
[2020-08-29] MEDS ORDERED: MIDAZOLAM 2 MG/2 ML VIAL IVP ONE (14:15)
[2020-08-29] MEDS ORDERED: fentaNYL citrate 0.05 MG/ML VIAL IVP ONE (14:15)
--- NOTE | 2020-08-29 14:26 | NUR ---
WAS NOTIFIED OF PT'S UNSUCCESSFUL COLONOSCOPY DUE TO FECES IN COLON AND RECOMMENDING OUTPATIENT TREATMENT FRO COLONOSCOPY.AWAITING REPLY.
--- NOTE | 2020-08-29 16:00 | NUR ---
PT WAS DISCHARGED HOME. PT WAS PROVIDED WITH DISCHARGE PACKET WHICH INCLUDED FOLLOWING WITH [facility] WITHIN 7 DAYS AFTER DISCHARGE, MEDICATIONS PRESCRIBED, LABS, AND MD NOTES. PT HAD HIS BELONGINGS AT BEDSIDE. HIS GRANDDAUGHTER Maury WAS AT BEDSIDE RECEIVING EDUCATION WITH PT. PT AND GRANDDAUGHTER VERBALIZED UNDERSTANDING OF DISCHARGE INSTRUCTIONS. 2 IV SITES WERE DC'S AND APPLIED 2X2 GAUZE. BOTH IV CATHETERS WERE INTACT AND PATENT AND DISCARDED PER FACILITY'S PROTOCOL.PT WAS ABLE TO CHANGE HIMSELF. PT WAS GOING TO GET DRIVEN HOME BY GRANDDAUGHTER MAURY. ID BANDS WERE REMOVED AND DISCARDED PER FACILITY'S PROTOCOL. PT WAS WHEELED DOWN WITH A WHEELCHAIR TO FRONT LOBBY. PT IS STABLE.
[2020-08-29] MEDS ORDERED: FERROUS SULFATE 325 MG TABEC PO SCH (17:00)
[2020-08-29] MEDS ORDERED: LACTULOSE 20 GM/30 ML UDC PO SCH (21:00)
== END 2020-08-29 16:05 | disposition home or self-care (01) | DRG 871 ==
LOC: MED 00:10 → MTU 05:05
PROVIDERS: ADMIT Family Medicine; ATTEND Family Medicine
PROC: 0DJD8ZZ Inspection of Lower Intestinal Tract, Via Natural or Artificial Opening Endoscopic (ICD-10-PCS; principal; 2020-08-29 13:15)
DX: A41.9 Sepsis, unspecified organism (principal); K26.5 Chronic or unspecified duodenal ulcer with perforation; G93.41 Metabolic encephalopathy; N17.0 Acute kidney failure with tubular necrosis; E87.1 Hypo-osmolality and hyponatremia; E87.5 Hyperkalemia; D64.9 Anemia, unspecified; E78.5 Hyperlipidemia, unspecified; E86.0 Dehydration; G89.29 Other chronic pain; H54.62 Unqualified visual loss, left eye, normal vision right eye; K59.00 Constipation, unspecified; K80.20 Calculus of gallbladder without cholecystitis without obstruction; K21.9 Gastro-esophageal reflux disease without esophagitis; E83.42 Hypomagnesemia; N18.9 Chronic kidney disease, unspecified; E11.22 Type 2 diabetes mellitus with diabetic chronic kidney disease; I12.9 Hypertensive chronic kidney disease with stage 1 through stage 4 chronic kidney disease, or unspecified chronic kidney disease; Z87.891 Personal history of nicotine dependence
CPT/HCPCS: 36415; 71045; 74150; 76700; 76770; 80048; 80053; 81001; 81003; 82150; 82570; 82948; 83036; 83690; 83735; 83880; 84100; 84300; 84436; 84439; 84443; 84479; 84484; 85025; 85610; 85730; 87081; 93005; C9113; J0696; J1200; J1815; J1940; J2250; J2270; J3010; J3475; J3490; J7030; J7060; Q9967